=== PATIENT | female | born 1965 | race Caucasian/White ===

== ENCOUNTER 2020-09-16 10:48 | Outpatient (CLI) | payer OTHER, SELFPAY ==
--- NOTE | 2020-09-16 12:00 | NEURO_ITS ---
Impression: # Complains of right upper extremity pain. History of carpal tunnel release on the right side. # Right mild Carpal Tunnel Syndrome. # No ulnar neuropathy. # Normal needle/EMG exam. # Clinical correlation recommended, Nerve Conduction Studies Anti Sensory Summary Table Stim Site NR Peak (ms) P-T Amp (?V) Site1 Site2 Delta-P (ms) Dist (cm) [place] (m/s) Right Median Anti Sensory (2-3nd Digit) Wrist 3.2 50.2 Wrist 2-3nd Digit 3.2 14.0 44 Wrist 3.2 61.7 Wrist 2-3nd Digit 3.2 14.0 44 Right Radial Anti Sensory (Base 1st Digit) Wrist 2.2 23.9 Wrist Base 1st Digit 2.2 0.0 Right Ulnar Anti Sensory (5th Digit) Wrist 2.5 41.7 Wrist 5th Digit 2.5 14.0 56 Motor Summary Table Stim Site NR Onset (ms) O-P Amp (mV) Site1 Site2 Delta-0 (ms) Dist (cm) [place] (m/s) Right Median Motor (Abd Poll Brev) Wrist 4.0 2.6 Elbow Wrist 5.5 32.0 58 Elbow 9.5 1.9 Right Ulnar Motor (Abd Dig Minimi) Wrist 2.8 8.0 A Elbow Wrist 5.3 32.0 60 A Elbow 8.1 5.8 F Wave Studies NR F-Lat (ms) L-R F-Lat (ms) Right Median (Mrkrs) (Abd Poll Brev) 29.98 Right Ulnar (Mrkrs) (Abd Dig Min) 28.87 EMG Side Muscle Nerve Root Ins Act Fibs Amp Dur Recrt Comment Right 1stDorInt Ulnar C8-T1 Nml Nml Nml Nml Nml Right Ext Indicis Radial (Post Int) C7-8 Nml Nml Nml Nml Nml Right Ext Digitorum Radial (Post Int) C7-8 Nml Nml Nml Nml Nml Right BrachioRad Radial C5-6 Nml Nml Nml Nml Nml Right PronatorTeres Median C6-7 Nml Nml Nml Nml Nml Right Abd Poll Brev Median C8-T1 Nml Nml Nml Nml Nml Right ABD Dig Min Ulnar C8-T1 Nml Nml Nml Nml Nml Right Biceps Musculocut C5-6 Nml Nml Nml Nml Nml Right Triceps Radial C6-7-8 Nml Nml Nml Nml Nml Right Deltoid Axillary C5-6 Nml Nml Nml Nml Nml MTDD
== END 2020-09-16 10:49 | disposition home or self-care (01) ==
PROVIDERS: PCP Physician Assistant; Visit Provider Orthopaedic Surgery Hand Surgery
DX: M79.641 Pain in right hand (principal); G56.01 Carpal tunnel syndrome, right upper limb
CPT/HCPCS: 95886; 95909

== ENCOUNTER 2020-10-13 08:51 | Outpatient (CLI) | payer OTHER, SELFPAY ==
--- NOTE | ~2020-10-13 | MM_ITS ---
EXAMINATION: MM screening [facility] BI w suni HISTORY: Screening mammogram TECHNIQUE: Craniocaudal and mediolateral oblique 3-D tomosynthesis images were obtained and synthetic 2-D images were generated. CAD analysis was submitted and interpreted. COMPARISON: 08/20/2018, 11/10/2015, 08/21/2013 BREAST PARENCHYMAL COMPOSITION: There are scattered areas of fibroglandular density. FINDINGS: There is no evidence of suspicious mass, calcification, or architectural distortion to sugg est malignancy in either breast. There has been no suspicious interval change. IMPRESSION: 1. No mammographic evidence of malignancy. 2. Recommend routine screening mammography in one year. BI-RADS Category 1: Negative Reviewed, dictated and finalized at location A.
== END 2020-10-13 08:52 | disposition home or self-care (01) ==
PROVIDERS: PCP Physician Assistant; Visit Provider Obstetrics & Gynecology
DX: Z12.31 Encounter for screening mammogram for malignant neoplasm of breast (principal)
CPT/HCPCS: 77063; 77067

== ENCOUNTER → 2021-10-11 15:04 | Outpatient (CLI) | payer OTHER, SELFPAY ==
--- NOTE | ~2021-10-11 | MR_ITS ---
EXAMINATION: MR brain/brain stem wo/w con DATE: 10/11/2021 15:51 INDICATION: Mild memory disturbance TECHNIQUE: Magnetic resonance imaging (MRI) of the brain and brainstem was performed without and with 20 cc MultiHance intravenous contrast. Sequences included sagittal and axial T1-weighted SE, axial d iffusion-weighted FS SE, axial T2*-weighted GRE, axial T2-weighted FLAIR Propeller, and axial T2-weig hted Propeller. Apparent diffusion coefficient (ADC) maps were created. COMPARISON: CT dated 03/03/2010. FINDINGS: There is normal brain parenchymal volume. No evidence for acute infarction or intracranial hemorrhage. No ventriculomegaly or midline shift. There are a few scattered focal hyperintensities in the deep periventricular white matter, within normal limits for age. No abnormal contrast enhancemen t. No focal masses. Structures of the posterior fossa including 7/8th cranial nerve complexes are nor mal. Orbits are symmetric without disconjugate gaze. Paranasal sinuses are unremarkable. Midline sagi ttal images demonstrate a normal corpus callosum and craniovertebral junction. No abnormalities of th e sella turcica. IMPRESSION: 1. Normal aging brain. Reviewed, dictated and finalized at location A. IMPRESSION: 1. Normal aging brain.
[2021-10-11 15:34] LABS: Estimated Glomerular Filt Rate > 60
== END ==
PROVIDERS: PCP Physician Assistant; Visit Provider Physician Assistant
DX: R41.3 Other amnesia (principal)
CPT/HCPCS: 70553; A9577

== ENCOUNTER → 2023-02-10 09:08 | Outpatient (CLI) | payer BC, SELFPAY ==
--- NOTE | ~2023-02-10 | CT_ITS ---
EXAMINATION: CT abdomen pelvis w con DATE: 02/10/2023 09:59 INDICATION: Left lower quadrant abdominal pain since November TECHNIQUE: Computed tomography (CT) of the abdomen and pelvis was performed with 100 CC Omnipaque 350 intravenous contrast. Automated exposure control and iterative reconstruction technique were employe d. Exam dose: 1181.32 mGy-cm total exam DLP. COMPARISON: None. FINDINGS: Subtle small minor fissure lymph nodes, benign. Minimal bilateral dependent lower lobe atel ectasis. The lung bases are clear of infiltrate or consolidation. Normal heart size. No pericardial or pleural effusion. Moderate sliding hiatal hernia. Prominent diffuse hepatic steatosis. No hepatic, splenic, pancreatic, adrenal or renal space-occupyin g mass lesion is detected. No renal mass lesion or urinary tract calculus or hydroureteronephrosis. The urinary bladder, uterus and adnexal areas are unremarkable. Normal caliber of the abdominal aorta. No intraperitoneal or retroperitoneal or pelvic mass lesion or adenopathy or ascites. Normal appendix. Diverticulosis of the colon; no CT evidence of diverticulitis. No bowel obstruction or intraperitoneal free air. Approximately 2.8 cm wide 2.3 cm deep fat-containing umbilical hernia. The mouth of the hernia is zuleyma roximately 2.4 cm wide. Chronic mild to moderate anterior wedging and loss of height of T12 with prominent inferior Schmorl's node. There is mild degenerative change of the lower thoracic spine. There is severe degenerative di sease at L5-S1. No suspicious osteolytic or osteoblastic lesions are noted. IMPRESSION: Diverticulosis of colon; no CT evidence of diverticulitis Moderate sliding hiatal hernia Prominent hepatic steatosis Reviewed, dictated and finalized at Location [facility]. Reviewed, dictated and finalized at location B.
[2023-02-10 09:48] LABS: Estimated Glomerular Filt Rate > 60
== END ==
PROVIDERS: PCP Physician Assistant; Visit Provider Physician Assistant
DX: R10.32 Left lower quadrant pain (principal); K44.9 Diaphragmatic hernia without obstruction or gangrene; K76.0 Fatty (change of) liver, not elsewhere classified; K57.30 Diverticulosis of large intestine without perforation or abscess without bleeding
CPT/HCPCS: 74177; Q9967

== ENCOUNTER 2023-06-02 08:51 | Outpatient (CLI) | payer BC, SELFPAY ==
--- NOTE | ~2023-06-02 | MM_ITS ---
EXAMINATION: MM screening [facility] BI w suni HISTORY: Screening TECHNIQUE: Craniocaudal and mediolateral oblique 3-D tomosynthesis images were obtained and synthetic 2-D images were generated. CAD analysis was submitted and interpreted. COMPARISON: Comparison to multiple prior studies sequentially, with oldest reviewed study dated 08/21. BREAST PARENCHYMAL COMPOSITION: There are scattered areas of fibroglandular density. FINDINGS: There is no evidence of suspicious mass, calcification, or architectural distortion to sugg est malignancy in either breast. There has been no suspicious interval change. IMPRESSION: 1. No mammographic evidence of malignancy. 2. Recommend routine screening mammography in one year. BI-RADS Category 1: Negative Reviewed, dictated and finalized at location A. MASTER
== END 2023-06-02 08:52 | disposition home or self-care (01) ==
LOC: ANHIMG 08:53
PROVIDERS: PCP Physician Assistant; Visit Provider Obstetrics & Gynecology
DX: Z12.31 Encounter for screening mammogram for malignant neoplasm of breast (principal)
CPT/HCPCS: 77063; 77067